=== PATIENT | female | born 1980 | race Hispanic/Latino ===

== ENCOUNTER 2018-07-10 14:26 | Outpatient (CLI) | payer BC ==
--- NOTE | 2018-07-10 15:16 | MMO ---
Bilateral MAMMO Bilat Screen [facility]. CLINICAL HISTORY: Patient is 38 years old and is seen for screening. VIEWS: The views performed were: bilateral craniocaudal with tomosynthesis; bilateral mediolateral oblique with tomosynthesis; and bilateral exaggerated craniocaudal. MAMMOGRAM FINDINGS: There are scattered fibroglandular densities. There are no suspicious masses, suspicious calcifications, or new areas of architectural distortion. IMPRESSION: THERE IS NO MAMMOGRAPHIC EVIDENCE OF MALIGNANCY. A ROUTINE FOLLOW-UP MAMMOGRAM IN 1 YEAR IS RECOMMENDED. THE RESULTS OF THIS EXAM WERE SENT TO THE PATIENT. ACR BI-RADS Category 1 - Negative MAMMOGRAPHY NOTE: 1. A negative mammogram report should not delay a biopsy if a dominant of clinically suspicious mass is present. 2. Approximately 10% to 15% of breast cancers are not detected by mammography. 3. Adenosis and dense breasts may obscure an underlying neoplasm.
== END 2018-07-10 14:27 | disposition home or self-care (01) ==
LOC: BICMAMMO 14:26
PROVIDERS: ATTEND Specialist
DX: Z12.31 Encounter for screening mammogram for malignant neoplasm of breast (principal)
CPT/HCPCS: 77063; 77067

== ENCOUNTER 2021-04-09 10:52 | Outpatient (CLI) | payer OTHER | END 2021-04-09 10:53 | disposition home or self-care (01) | LOC: BICMAMMO 10:52 | PROVIDERS: ATTEND Nurse Practitioner Family | DX: C50.812 Malignant neoplasm of overlapping sites of left female breast (principal) | CPT/HCPCS: 19083; 77063; 77067; 88305; 88341; 88342 ==

== ENCOUNTER 2021-05-19 06:41 | Day surgery (SDC) | payer OTHER ==
[2021-05-14 14:26] VITALS: BMI 49.6
[2021-05-19] MEDS ORDERED: Midazolam HCl 2 mg/2 ml Vial ONE (10:23)
[2021-05-19] MEDS ORDERED: Lidocaine 1% w/Epinephrine 1:100K 30 ML VIAL ONE (10:45)
[2021-05-19] MEDS ORDERED: Bupivacaine 0.25% 10 ML VIAL ONE (10:45)
[2021-05-19] MEDS ORDERED: Methylene Blue 50 MG/10 ML AMPUL ONE (10:45)
[2021-05-19] MEDS ORDERED: Fentanyl 100 MCG/2 ML VIAL ONE (11:06)
[2021-05-19] MEDS ORDERED: ceFAZolin 2 GM/DEX 5% 100 ML BAG ONE (11:16)
[2021-05-19] MEDS ORDERED: Glycopyrrolate 0.2 MG/ML 5 ML SYRINGE ONE (11:30)
[2021-05-19] MEDS ORDERED: Lidocaine 1% PF 5 ML VIAL ONE (11:30)
[2021-05-19] MEDS ORDERED: Ondansetron PF 4 MG/2 ML Vial ONE (11:30)
[2021-05-19] MEDS ORDERED: PROPOFOL 200 MG/20 ML VIAL ONE (11:30)
[2021-05-19] MEDS ORDERED: Dexamethasone 20 MG/5 ML VIAL ONE (11:30)
[2021-05-19] MEDS ORDERED: Rocuronium Bromide 10 MG/ML (10ML VIAL) ONE (11:30)
[2021-05-19] MEDS ORDERED: SUGAMMADEX SODIUM 200 MG/2 ML VIAL ONE (12:30)
[2021-05-19] MEDS ORDERED: Morphine 4 MG/ML VIAL ONE (13:30)
[2021-05-19] MEDS ORDERED: HYDROcodone/Acetaminophen 5/325 mg Tablet ONE (14:04)
== END 2021-05-19 14:55 | disposition home or self-care (01) ==
LOC: SDC 06:41
PROVIDERS: ATTEND Surgery
PROC: 0HBU0ZZ Excision of Left Breast, Open Approach (ICD-10-PCS; principal; 2021-05-19)
PROC: 07B60ZX Excision of Left Axillary Lymphatic, Open Approach, Diagnostic (ICD-10-PCS; principal; 2021-05-19)
DX: C50.812 Malignant neoplasm of overlapping sites of left female breast (principal); C77.3 Secondary and unspecified malignant neoplasm of axilla and upper limb lymph nodes; R73.03 Prediabetes; Z17.0 Estrogen receptor positive status [ER+]
CPT/HCPCS: 19281; 76098; 78195; 88307; 88341; 88342; A9541; J1100; J2250; J2270; J2405; J2704; J3010; Q9968; S0020

== ENCOUNTER 2021-06-04 09:20 | Day surgery (SDC) | payer OTHER ==
[2021-06-01 10:13] VITALS: BMI 48.0
[2021-06-04] MEDS ORDERED: Midazolam HCl 2 mg/2 ml Vial ONE (11:45)
[2021-06-04] MEDS ORDERED: Fentanyl 100 MCG/2 ML VIAL ONE (11:53)
[2021-06-04] MEDS ORDERED: PROPOFOL 40 ML ONE (11:53)
[2021-06-04] MEDS ORDERED: Bupivacaine 0.25% HCL 30 ML VIAL ONE (11:58)
[2021-06-04] MEDS ORDERED: EPINEPHrine 1 MG/ML AMP ONE (11:58)
[2021-06-04] MEDS ORDERED: Lidocaine 1% w/Epinephrine 1:100K 20 ML VIAL ONE (12:01)
[2021-06-04] MEDS ORDERED: ceFAZolin (BATCH) 2 GM/100 ML BAG ONE (12:10)
[2021-06-04] MEDS ORDERED: PROPOFOL 200 MG/20 ML VIAL ONE (12:18)
[2021-06-04] MEDS ORDERED: PROPOFOL 20 ML ONE ×2 (12:42→13:14)
[2021-06-04] MEDS ORDERED: HYDROcodone/Acetaminophen 5/325 mg Tablet ONE (13:36)
== END 2021-06-04 14:40 | disposition home or self-care (01) ==
LOC: SDC 09:20
PROVIDERS: ATTEND Surgery
PROC: 02HV33Z Insertion of Infusion Device into Superior Vena Cava, Percutaneous Approach (ICD-10-PCS; principal; 2021-06-04)
PROC: 0JH60WZ Insertion of Totally Implantable Vascular Access Device into Chest Subcutaneous Tissue and Fascia, Open Approach (ICD-10-PCS; principal; 2021-06-04)
DX: C50.912 Malignant neoplasm of unspecified site of left female breast (principal); R73.03 Prediabetes; E66.9 Obesity, unspecified; Z68.42 Body mass index [BMI] 45.0-49.9, adult; Z17.0 Estrogen receptor positive status [ER+]; Z79.899 Other long term (current) drug therapy
CPT/HCPCS: 71045; C1788; J0171; J0690; J1642; J2250; J2704; J3010; S0020

== ENCOUNTER 2021-11-17 09:30 | Outpatient (CLI) | payer OTHER | END 2021-11-17 09:31 | disposition home or self-care (01) | LOC: PET 09:30 | PROVIDERS: ATTEND Internal Medicine Hematology & Oncology | DX: C79.51 Secondary malignant neoplasm of bone (principal); C50.812 Malignant neoplasm of overlapping sites of left female breast | CPT/HCPCS: 78815; A9552 ==

== ENCOUNTER 2022-02-09 12:30 | Outpatient (CLI) | payer BC | END 2022-02-09 12:31 | LOC: PET 12:30 | PROVIDERS: ATTEND Internal Medicine Hematology & Oncology | DX: C79.51 Secondary malignant neoplasm of bone (principal); C50.812 Malignant neoplasm of overlapping sites of left female breast | CPT/HCPCS: 78815; A9552 ==

== ENCOUNTER 2022-09-17 08:00 | Outpatient (CLI) | payer BC | END 2022-09-17 08:01 | disposition home or self-care (01) | LOC: PET 08:00 | PROVIDERS: ATTEND Internal Medicine Hematology & Oncology | DX: C50.812 Malignant neoplasm of overlapping sites of left female breast (principal); C79.51 Secondary malignant neoplasm of bone; C77.9 Secondary and unspecified malignant neoplasm of lymph node, unspecified | CPT/HCPCS: 78815; A9552 ==

== ENCOUNTER 2023-03-29 08:43 | Outpatient (CLI) | payer OTHER ==
[2023-03-29] MEDS ORDERED: Iopamidol 370 76% 100 ML VIAL ONE (10:17)
== END 2023-03-29 08:44 | disposition home or self-care (01) ==
LOC: CT 08:43
PROVIDERS: ATTEND Internal Medicine Hematology & Oncology
DX: C50.812 Malignant neoplasm of overlapping sites of left female breast (principal); C79.51 Secondary malignant neoplasm of bone; R93.5 Abnormal findings on diagnostic imaging of other abdominal regions, including retroperitoneum; Z98.890 Other specified postprocedural states
CPT/HCPCS: 71260; 74177

== ENCOUNTER 2023-04-20 09:46 | Outpatient (CLI) | payer OTHER | END 2023-04-20 09:47 | disposition home or self-care (01) | LOC: BICMAMMO 09:46 | PROVIDERS: ATTEND Internal Medicine Hematology & Oncology | DX: M81.0 Age-related osteoporosis without current pathological fracture (principal); C50.812 Malignant neoplasm of overlapping sites of left female breast; C79.51 Secondary malignant neoplasm of bone; M85.852 Other specified disorders of bone density and structure, left thigh | CPT/HCPCS: 77080 ==